=== PATIENT | female | born 1985 | race Caucasian/White ===

== ENCOUNTER 2021-12-13 18:02 | Inpatient (IN) | payer BC, OTHER ==
[2021-12-13] MEDS ORDERED: TERBUTALINE SULFATE 1 MG/1 ML VIAL SQ ONE ×2 (18:14→18:16)
[2021-12-13] MEDS ORDERED: CEFAZOLIN 2 GM in DEXTROSE 5%-WATER - 50 ML IVPB ONE (18:15)
[2021-12-13] MEDS ORDERED: SODIUM CHLORIDE 1,000 ML IV SCH ×2 (18:15→18:45)
[2021-12-13] MEDS ORDERED: CEFAZOLIN SODIUM 2 GM VIAL ONE (18:19)
[2021-12-13] MEDS ORDERED: BUTORPHANOL TARTRATE 2 MG/ML VIAL IVPB ONE (21:20)
[2021-12-13] MEDS ORDERED: PROMETHAZINE HCL 25 MG/1 ML VIAL IVPB ONE (21:20)
[2021-12-13] MEDS ORDERED: PROMETHAZINE HCL 25 MG/1 ML VIAL ONE (21:45)
[2021-12-13] MEDS ORDERED: BUTORPHANOL TARTRATE 2 MG/ML VIAL ONE (21:45)
[2021-12-13] MEDS ORDERED: INDOMETHACIN 50 MG CAPSULE PO ONE (23:00)
[2021-12-14] MEDS ORDERED: MAGNESIUM SULFATE IN WATER 4 GM/50 ML BAG IVPB ONE (01:00)
[2021-12-14] MEDS ORDERED: MAGNESIUM 4GM/H20 - 4 GM/100 ML IVPB IVPB ONE (01:28)
[2021-12-14] MEDS ORDERED: BETAMET ACET/BETAMET NA PH 30 MG/5 ML VIAL ONE (01:28)
[2021-12-14 01:37] LABS: BASO % 0.5 % (0-2.0); HEMOGLOBIN 11.4 GM/dL (10.7-15.3); LYMPH % 6.2 % (8-40); MCH 31.2 pg (25.7-33.7); MCHC 33.7 g/dl (32.0-36.0); MEAN CELL VOLUME 92.6 fl (80-96); MONO % 3.6 % (3.8-10.2); NEUT % 89.7 % (42.8-82.8); PLATELET COUNT 201 10^3/uL (134-434); RBC 3.67 M/mm3 (3.60-5.2); RDW 13.6 % (11.6-15.6); WHITE BLOOD COUNT 18.2 K/mm3 (4.0-10.0)
[2021-12-14] MEDS: BETAMET ACET/BETAMET NA PH 30 MG/5 ML VIAL IM SCH (01:45)
[2021-12-14 01:46] LABS: INR 1.03 (0.83-1.09); PROTHROMBIN TIME (PATIENT) 11.8 SEC (9.7-13.0)
[2021-12-14 01:49] LABS: ACTIVATED PTT 27.2 SECONDS (25.2-36.5)
[2021-12-14 01:59] LABS: ALBUMIN 2.5 g/dl (3.4-5.0); BLOOD UREA NITROGEN 5.4 mg/dL (7-18); CALCIUM 8.3 mg/dL (8.5-10.1)
[2021-12-14 02:01] LABS: CREATININE 0.4 mg/dL (0.55-1.3)
[2021-12-14 02:03] LABS: BILIRUBIN,TOTAL 0.3 mg/dL (0.2-1)
[2021-12-14] MEDS ORDERED: MAGNESIUM SULFATE 20GM/500ML - 20 GM/500 ML INFUS.BAG ONE ×3 (02:03→23:24)
[2021-12-14] MEDS: MAGNESIUM SULFATE 20GM/500ML - 20 GM/500 ML INFUS.BAG IVPB SCH ×2 (02:05→23:30)
[2021-12-14 02:13] VITALS: BMI 25.7
[2021-12-14] MEDS: INDOMETHACIN 25 MG CAPSULE PO SCH ×4 (05:15→22:48)
[2021-12-14] MEDS ORDERED: ceFAZolin SODIUM 1 GM VIAL ONE (05:51)
[2021-12-14] MEDS ORDERED: CEFAZOLIN 1 GM in DEXTROSE 5%-WATER - 50 ML IVPB SCH (06:00)
[2021-12-14 08:23] LABS: SYPHILIS W/ RPR CONF NON-REACTIVE (NONREACTIVE)
[2021-12-14 08:52] LABS: HIV INTERPRETATION NEGATIVE (NEGATIVE)
[2021-12-14] MEDS ORDERED: ELECTROLYTE-148 SOLN 1,000 ML IV SCH (12:45)
[2021-12-14] MEDS ORDERED: INSULIN (NOVOLOG) ASPART 100 UNITS/ML 10ML VIAL ONE (13:31)
[2021-12-14] MEDS ORDERED: FLUCONAZOLE 150 MG TABLET PO ONE (14:00)
[2021-12-14] MEDS ORDERED: INSULIN (NOVOLOG) ASPART 100 UNITS/ML 10ML VIAL SQ ONE (14:00)
[2021-12-14] MEDS ORDERED: ACETAMINOPHEN 500 MG TABLET (FP) PO ONE (16:05)
[2021-12-14] MEDS ORDERED: ACETAMINOPHEN 1000 MG/100 ML BAG IVPB ONE (16:15)
[2021-12-14 17:20] LABS: LIPASE 63 U/L (73-393)
[2021-12-14 17:21] LABS: AMYLASE 26 U/L (25-115)
[2021-12-14] MEDS ORDERED: MAG HYDROX/AL HYDROX/SIMETH 30 ML UNIT-DOSE CUP PO ONE (19:40)
[2021-12-14] MEDS ORDERED: ACETAMINOPHEN INJECTION 100 ML IVPB ONE (22:45)
[2021-12-14] MEDS: ACETAMINOPHEN 1000 MG/100 ML BAG IVPB PRN (22:45)
[2021-12-15] MEDS: INSULIN SLIDING SCALE (NOVOLOG) 1 VIAL SQ SCH ×3 (00:20→07:17)
[2021-12-15] MEDS: BETAMET ACET/BETAMET NA PH 30 MG/5 ML VIAL IM SCH (01:55)
[2021-12-15] MEDS ORDERED: ELECTROLYTE-148 SOLN 1,000 ML IV SCH (04:00)
[2021-12-15] MEDS ORDERED: ACETAMINOPHEN INJECTION 100 ML IVPB ONE (04:14)
[2021-12-15] MEDS: ACETAMINOPHEN 1000 MG/100 ML BAG IVPB PRN (04:15)
[2021-12-15] MEDS: INDOMETHACIN 25 MG CAPSULE PO SCH (05:40)
[2021-12-15 05:47] VITALS: RESP 18
[2021-12-15 07:04] VITALS: BP 109/70; PULSE 76; TEMP 97.8
[2021-12-15] MEDS ORDERED: SERTRALINE HCL 50 MG TABLET (FP) PO SCH (10:00)
== END 2021-12-15 07:30 | disposition home or self-care (01) | DRG 832 ==
LOC: JDEL 18:02 → JLDR 12-14 00:45
PROVIDERS: ADMIT Obstetrics & Gynecology; ATTEND Obstetrics & Gynecology
DX: O60.03 Preterm labor without delivery, third trimester (principal); B37.49 Other urogenital candidiasis; O23.43 Unspecified infection of urinary tract in pregnancy, third trimester; Z3A.28 28 weeks gestation of pregnancy; O34.13 Maternal care for benign tumor of corpus uteri, third trimester; D25.9 Leiomyoma of uterus, unspecified; O24.419 Gestational diabetes mellitus in pregnancy, unspecified control
CPT/HCPCS: 36415; 76705-TC; 76819-TC; 76830-TC; 80053; 82150; 82962; 83690; 83735; 85025; 85610; 85730; 86762; 86780; 86850; 86870; 86900; 86901; 86902; 87081; 87086; 87340; 87389; 96372; C9803-CS; U0003; U0005

== ENCOUNTER 2022-02-08 07:55 | Inpatient (IN) | payer BC, OTHER ==
[2022-02-08] MEDS ORDERED: AMPICILLIN SODIUM 2 GM VIAL ONE (08:51)
[2022-02-08] MEDS: ELECTROLYTE-148 SOLN 1,000 ML IV SCH ×2 (09:00→11:29)
[2022-02-08] MEDS ORDERED: FENTANYL/BUPIVACAINE/NS/PF - PCEA - 50 ML DISP.SYRIN EP ONE ×2 (09:07→14:02)
[2022-02-08] MEDS ORDERED: BUPIVACAINE HCL/PF 0.25% (2.5MG/ML) 10 ML VIAL ONE ×3 (09:08→14:51)
[2022-02-08] MEDS: FENTANYL/BUPIVACAINE/NS/PF - PCEA - 50 ML DISP.SYRIN EP SCH ×2 (09:25→14:10)
[2022-02-08] MEDS ORDERED: NALOXONE HCL 0.4 MG/ML VIAL IVPUSH PRN (09:50)
[2022-02-08 09:52] LABS: BASO % 0.6 % (0-2.0); EOS % 0.4 % (0-4.5); HEMATOCRIT 38.9 % (32.4-45.2); HEMOGLOBIN 13.2 GM/dL (10.7-15.3); LYMPH % 15.8 % (8-40); MCH 31.8 pg (25.7-33.7); MCHC 33.8 g/dl (32.0-36.0); MEAN CELL VOLUME 93.9 fl (80-96); MEAN PLT VOLUME 9.8 fl (7.5-11.1); MONO % 6.7 % (3.8-10.2); NEUT % 76.5 % (42.8-82.8); PLATELET COUNT 194 10^3/uL (134-434); RBC 4.15 M/mm3 (3.60-5.2); RDW 13.9 % (11.6-15.6)
[2022-02-08 09:59] LABS: INR 0.92 (0.83-1.09); PROTHROMBIN TIME (PATIENT) 10.6 SEC (9.7-13.0)
[2022-02-08 10:02] LABS: ACTIVATED PTT 27.9 SECONDS (25.2-36.5)
[2022-02-08 10:14] LABS: CALCIUM 8.5 mg/dL (8.5-10.1)
[2022-02-08 10:15] LABS: BLOOD UREA NITROGEN 10.8 mg/dL (7-18)
[2022-02-08 10:18] LABS: CREATININE 0.6 mg/dL (0.55-1.3)
[2022-02-08 10:22] VITALS: BMI 30.9
[2022-02-08] MEDS ORDERED: ELECTROLYTE-148 SOLN 1,000 ML IV ONE (10:45)
[2022-02-08] MEDS ORDERED: AMPICILLIN - 2 GM in DEXTROSE 5%-WATER 100 ML IVPB ONE (10:45)
[2022-02-08] MEDS ORDERED: OXYTOCIN 30 UNITS in 0.9% NS 30 UNIT/500 ML INFUS.BAG IVPB ONE (11:20)
[2022-02-08] MEDS ORDERED: OXYTOCIN 30 UNITS in 0.9% NS 30 UNIT/500 ML INFUS.BAG IVPB SCH (11:45)
[2022-02-08] MEDS ORDERED: ELECTROLYTE-148 SOLN 1,000 ML IV SCH (11:45)
[2022-02-08] MEDS ORDERED: AMPICILLIN - 1 GM in DEXTROSE 5%-WATER 100 ML IVPB SCH (13:00)
[2022-02-08] MEDS ORDERED: FENTANYL CITRATE/PF 50 MCG/ML VIAL ONE (14:49)
[2022-02-08] MEDS ORDERED: OXYTOCIN 20 UNITS in 0.9% NS 20 UNIT/1,000 ML INFUS.BAG IV ONE (16:33)
[2022-02-08] MEDS ORDERED: BENZOCAINE 20% 57 GM BOTTLE TP PRN (17:28)
[2022-02-08] MEDS ORDERED: ACETAMINOPHEN 325 MG TABLET (FP) PO PRN (17:28)
[2022-02-08] MEDS ORDERED: BENZOCAINE 28 GM HEMORRHOIDAL OINTMENT TP PRN (17:28)
[2022-02-08] MEDS ORDERED: BISACODYL 10 MG SUPP.RECT RC PRN (17:28)
[2022-02-08] MEDS ORDERED: WITCH HAZEL 50% (TUCKS) 40 PAD/JAR PAD TP PRN (17:28)
[2022-02-08] MEDS ORDERED: METHYLERGONOVINE MALEATE 0.2 MG/1 ML AMP IM PRN (17:28)
[2022-02-08] MEDS ORDERED: OXYTOCIN 20 UNITS in 0.9% NS 20 UNIT/1,000 ML INFUS.BAG IV SCH (17:30)
[2022-02-08 17:56] LABS: CORD BASE EXCESS -7.8 mmol/L (0-2); CORD HCO3 22.1 mmHg (20-29); CORD PCO2 64.8 mmHg (30-78); CORD pH 7.151 (7.14-7.44)
[2022-02-08 17:59] LABS: CORD HCO3 20.4 mmHg (20-29); CORD PCO2 47.3 mmHg (30-78); CORD pH 7.252 (7.14-7.44)
[2022-02-08] MEDS ORDERED: IBUPROFEN 600 MG TABLET (FP) PO ONE (19:17)
[2022-02-08] MEDS: IBUPROFEN 600 MG TABLET (FP) PO PRN (19:20)
[2022-02-09 08:59] LABS: BASO % 0.5 % (0-2.0); EOS % 0.7 % (0-4.5); HEMATOCRIT 34.7 % (32.4-45.2); HEMOGLOBIN 11.8 GM/dL (10.7-15.3); LYMPH % 11.8 % (8-40); MCHC 34.1 g/dl (32.0-36.0); MEAN CELL VOLUME 93.7 fl (80-96); MEAN PLT VOLUME 9.9 fl (7.5-11.1); MONO % 7.6 % (3.8-10.2); NEUT % 79.4 % (42.8-82.8); PLATELET COUNT 174 10^3/uL (134-434); RDW 14.3 % (11.6-15.6); WHITE BLOOD COUNT 15.6 K/mm3 (4.0-10.0)
[2022-02-09 09:51] LABS: POC NITRAZINE POS
[2022-02-09] MEDS: IBUPROFEN 600 MG TABLET (FP) PO PRN ×2 (10:53→20:00)
[2022-02-09] MEDS: SERTRALINE HCL 50 MG TABLET (FP) PO SCH (11:37)
[2022-02-09] MEDS ORDERED: SENNOSIDES/DOCUSATE COMBO (SENNA PLUS) TABLET (UD) PO PRN (22:00)
[2022-02-09 22:44] VITALS: PULSE 71
[2022-02-10] MEDS: IBUPROFEN 600 MG TABLET (FP) PO PRN (06:02)
[2022-02-10 09:46] VITALS: BP 111/59; RESP 12; TEMP 97.9
[2022-02-10] MEDS: SERTRALINE HCL 50 MG TABLET (FP) PO SCH (11:15)
== END 2022-02-10 11:15 | disposition home or self-care (01) | DRG 807 ==
LOC: JLDR 07:55 → J3W 20:47
PROVIDERS: ADMIT Obstetrics & Gynecology; ATTEND Obstetrics & Gynecology
PROC: 0UQMXZZ Repair Vulva, External Approach (ICD-10-PCS; principal; 2022-02-08)
PROC: 10E0XZZ Delivery of Products of Conception, External Approach (ICD-10-PCS; 2022-02-08)
DX: O42.913 Preterm premature rupture of membranes, unspecified as to length of time between rupture and onset of labor, third trimester (principal); Z37.0 Single live birth; O24.429 Gestational diabetes mellitus in childbirth, unspecified control; O99.344 Other mental disorders complicating childbirth; F41.8 Other specified anxiety disorders; O40.3XX0 Polyhydramnios, third trimester, not applicable or unspecified; O71.82 Other specified trauma to perineum and vulva; Z3A.36 36 weeks gestation of pregnancy; O99.214 Obesity complicating childbirth
CPT/HCPCS: 36415; 36600; 59409; 80048; 82803; 83986-QW; 85025; 85461; 85610; 85730; 86780; 86850; 86870; 86900; 86901; 86902; 86999; C9803-CS; U0003; U0005